=== PATIENT | male | born 1955 | race Caucasian/White ===

== ENCOUNTER → 2017-11-20 | Outpatient (CLI) | payer OTHER ==
[~2017-11-20] MED LIST: OMNIPAQUE 350 MG/ML, 100ML BOTTLE ONE
[2017-11-20 16:40] LABS: CREATININE 0.92 mg/dL (0.7-1.3)
== END ==
LOC: RAD 15:41
PROVIDERS: ATTEND Family Medicine
DX: K57.30 Diverticulosis of large intestine without perforation or abscess without bleeding (principal); N28.1 Cyst of kidney, acquired
CPT/HCPCS: 36415; 74177; 82565; Q9967